=== PATIENT | male | born 1945 | race Caucasian/White ===

== ENCOUNTER 2020-03-11 09:47 | Inpatient (IN) | payer MEDICARE, SELFPAY ==
[2020-03-11] VITALS (15 sets, daily range): BP systolic 70–108; BP diastolic 36–80; PULSE 78–112; RESP 19–24; TEMP 36–37.1; O2SAT 92–99; BMI 24.7
--- NOTE | ~2020-03-11 | XR_ITS ---
EXAMINATION: XR chest 1V portable DATE: 03/11/2020 11:07 INDICATION: Cough and shortness of breath TECHNIQUE: frontal view of the chest was obtained. COMPARISON: Chest radiograph dated 07/28/2016 FINDINGS: Bronchial wall thickening which could represent either bronchitis or minimal pulmonary edema. No foca l airspace opacities, pleural effusion or pneumothorax. The cardiomediastinal silhouette is normal. A therosclerotic calcifications along the aorta and great vessels arising from the arch. Surgical clips at the bilateral neck which may be related to prior carotid endarterectomies. IMPRESSION: 1. Mild bronchial wall thickening which could be seen with bronchitis or minimal pulmonary edema. Reviewed, dictated and finalized at location A. IMPRESSION: 1. Mild bronchial wall thickening which could be seen with bronchitis or minima l pulmonary edema.
--- NOTE | ~2020-03-11 | XR_ITS ---
EXAMINATION: XR abdomen NG/feed tube rechec DATE: 03/14/2020 09:01 INDICATION: Nasogastric tube adjustment. TECHNIQUE: A supine view of the abdomen was obtained. COMPARISON: Abdomen single view at 8:48 AM FINDINGS: There are no dilated loops of bowel. Surgical clips overlie the abdomen. The nasogastric tu be tip is at the gastroesophageal junction. IMPRESSION: 1. Nasogastric tube tip at the gastroesophageal junction. Advancement 8 cm is recommended. Reviewed, dictated and finalized at location A. IMPRESSION: 1. Nasogastric tube tip at the gastroesophageal junction. Advancement 8 cm is r ecommended.
--- NOTE | ~2020-03-11 | XR_ITS ---
EXAMINATION: XR abdomen NG/feed tube rechec DATE: 03/14/2020 09:01 INDICATION: Nasogastric tube adjustment. TECHNIQUE: A supine view of the abdomen was obtained. COMPARISON: Abdomen single view at 8:50 AM. FINDINGS: There are no dilated loops of bowel. Surgical clips overlie the abdomen. The nasogastric tu be tip is at the gastroesophageal junction. IMPRESSION: 1. Nasogastric tube tip at the gastroesophageal junction. Advancement 8 cm is recommended. Reviewed, dictated and finalized at location A. IMPRESSION: 1. Nasogastric tube tip at the gastroesophageal junction. Advancement 8 cm is r ecommended.
--- NOTE | ~2020-03-11 | XR_ITS ---
EXAMINATION: XR chest 1V portable DATE: 03/14/2020 05:41 INDICATION: Pneumonia TECHNIQUE: frontal view of the chest was obtained. COMPARISON: Chest radiograph dated 03/13/2020 FINDINGS: Or hilar bronchial wall thickening. Subtle opacities in the right lower lung zone which could represe nt atelectasis or pneumonia. No pleural effusion or pneumothorax. The cardiomediastinal silhouette is normal. Atherosclerotic calcification along the aorta and great vessels arising from the arch. Posto perative changes with surgical clips at the bilateral neck and mandible. IMPRESSION: 1. Perihilar bronchial wall thickening and subtle opacities in the right lower lung zone which could represent atelectasis or pneumonia. Reviewed, dictated and finalized at location A.
--- NOTE | ~2020-03-11 | XR_ITS ---
EXAMINATION: XR chest 1V portable INDICATION: Severe sepsis TECHNIQUE: Portable AP chest at 0759 hours COMPARISON: 03/11/2020 FINDINGS: Minimal lower lung zone predominant bronchial wall thickening persists. There is no pleural effusion or pneumothorax. The heart size is normal. Calcified atherosclerosis is noted. Surgical cli ps are noted in the neck. IMPRESSION: 1. Unchanged mild bronchial wall thickening which may reflect bronchitis or pulmonary edema. Reviewed, dictated and finalized at location A. IMPRESSION: 1. Unchanged mild bronchial wall thickening which may reflect bronchitis or pul monary edema.
--- NOTE | ~2020-03-11 | XR_ITS ---
EXAMINATION: XR chest ET placement DATE: 03/14/2020 08:44 INDICATION: Intubation. TECHNIQUE: A single frontal view of the chest was obtained. COMPARISON: Chest single view 03/14/2020 at 5:18 AM FINDINGS: The left lateral costophrenic angle is excluded. A skin fold overlies left hemithorax. No p neumonia, pleural effusion, or pneumothorax. The heart size is normal. Calcified right hilar and medi astinal lymph nodes are consistent with old granulomatous disease. The endotracheal tube tip is 2.3 c m above the volodymyr. The nasogastric tube tip is at the gastroesophageal junction. IMPRESSION: 1. No acute cardiopulmonary disease. 2. Nasogastric tube tip at the gastroesophageal junction. Advancement 8 cm is recommended. Reviewed, dictated and finalized at location A. IMPRESSION: 1. No acute cardiopulmonary disease. 2. Nasogastric tube tip at the gastroesophageal junction. Advancement 8 cm is r ecommended.
--- NOTE | ~2020-03-11 | XR_ITS ---
EXAMINATION: XR abdomen NG/feed tube insert DATE: 03/14/2020 08:44 INDICATION: Nasogastric tube placement. TECHNIQUE: A supine view of the abdomen was obtained. COMPARISON: None. FINDINGS: There are no dilated loops of bowel. Surgical clips overlie the abdomen. The nasogastric tu be tip is at the gastroesophageal junction. IMPRESSION: 1. Nasogastric tube tip at the gastroesophageal junction. Advancement 8 cm is recommended. Reviewed, dictated and finalized at location A. IMPRESSION: 1. Nasogastric tube tip at the gastroesophageal junction. Advancement 8 cm is r ecommended.
--- NOTE | ~2020-03-11 | CT_ITS ---
EXAMINATION: CT brain wo con DATE: 03/11/2020 11:38 INDICATION: Altered mental status. Confusion. TECHNIQUE: Computed tomography (CT) of the head was performed without intravenous contrast. Sagittal and coronal reconstructions were performed. The mA was adjusted according to patient size. Iterative reconstruction technique was employed. The dose-length product was 605.33 mGy-cm. COMPARISON: None FINDINGS: Small region of encephalomalacia consistent with chronic infarct at the base of a sulcus at the anter ior left frontal lobe. Additional small old infarcts in the right jeanette and right cerebellar hemispher e. No acute intracranial hemorrhage, acute infarction or abnormal extra axial fluid collection. There is mild scattered white matter hypoattenuation consistent with chronic small vessel ischemic disease . Symmetric prominence of the sulci consistent with mild age-appropriate diffuse cerebral volume loss . Ventricles are normal and symmetric. No mass/mass effect. Bilateral otomastoid effusions. The orbit s and paranasal sinuses are normal. Intracranial calcified cerebral atherosclerosis is noted. IMPRESSION: 1. Small old infarcts in the left frontal lobe, right jeanette and right cerebellar hemisphere. No acute intracranial process. 2. Mild scattered white matter hypoattenuation consistent with chronic small vessel ischemic disease. 3. Bilateral otomastoid effusions. Correlate clinically for otomastoiditis. Reviewed, dictated and finalized at location A. IMPRESSION: 1. Small old infarcts in the left frontal lobe, right jeanette and right cerebellar hemisphere. No acute intracranial process. 2. Mild scattered white matter hypoattenuation consistent with chronic small ve ssel ischemic disease. 3. Bilateral otomastoid effusions. Correlate clinically for otomastoiditis.
--- NOTE | ~2020-03-11 | XR_ITS ---
EXAMINATION: XR chest 1V portable DATE: 03/13/2020 05:45 INDICATION: Pneumonia TECHNIQUE: frontal view of the chest was obtained. COMPARISON: Chest radiograph dated 03/12/2020 FINDINGS: No interval change in infrahilar predominant bronchial wall thickening with interstitial pattern. No focal airspace consolidation, pleural effusion or pneumothorax. The cardiomediastinal silhouette is n ormal. Atherosclerotic aorta. IMPRESSION: 1. Unchanged infrahilar bronchial wall thickening which could be seen with bronchitis or minimal pulm onary edema. Reviewed, dictated and finalized at location A. IMPRESSION: 1. Unchanged infrahilar bronchial wall thickening which could be seen with bron chitis or minimal pulmonary edema.
--- NOTE | 2020-03-11 09:58 | ECG_ITS ---
Measurements Intervals [place] Rate: 79 P: 28 MI: 142 QRS: 35 QRSD: 82 T: 55 QT: 377 QTc: 434 Interpretive Statements SINUS RHYTHM WITH SINUS ARRHYTHMIA NORMAL ECG Electronically Signed On 03-11-2020 10:17:37 CDT by Nba Stevenson D.O.
[2020-03-11 10:09] LABS: Basophils Absolute Auto 0.1 K/mm3 (0.0-0.1); Basophils Percent Auto 1.1 % (0.2-1.2); Eosinophils Absolute Auto 0.1 K/mm3 (0-0.3); Eosinophils Percent Auto 0.9 % (0-4.4); Hematocrit 47.4 % (42.0-52.0); Hemoglobin 15.2 g/dL (14.0-18.0); Immature Granulocyte Absolute 0.02 K/mm3 (0.00-0.031); Immature Granulocyte Percent A 0.2 % (0-0.5); Lymphocytes Absolute Auto 1.62 K/mm3 (0.9-3.2); Lymphocytes Percent Auto 13.8 % (18.3-44.2); Mean Corpuscular HGB Conc 32.1 g/dl (32-36); Mean Corpuscular Hemoglobin 29.9 pg (26-34); Mean Corpuscular Volume 93.1 fl (80-100); Mean Platelet Volume 9.5 fl (7.4-10.4); Monocytes Absolute Auto 0.9 K/mm3 (0.1-0.6); Monocytes Percent Auto 7.7 % (2.6-8.5); Neutrophils Percent Auto 76.3 % (45.5-73.1); Platelet Count Result 236 k/mm3 (150-375); Red Blood Count 5.09 M/mm3 (4.6-6.20); Red Cell Distribution Width 14.1 % (11.5-14.5); White Blood Count 11.8 K/mm3 (4.5-10.0)
[2020-03-11] MEDS: SODIUM CHLORIDE 0.9% IV 1,000 ML 999 ML IV CONT ×2 (10:13→11:20)
--- NOTE | 2020-03-11 10:15 | PC.NURSE ---
PT ADAMANT THAT HE DOES NOT WANT A CATHETER. A&OX3, PA AUGUST AWARE, PT ATTEMPTING TO GIVE CLEAN CATCH URINE SAMPLE AT THIS TIME.
--- NOTE | 2020-03-11 10:17 | PC.NURSE ---
1L NS FROM EMS CONTINUED UPON ARRIVAL FOR LOW BP.
[2020-03-11 10:21] LABS: Alanine Aminotransferase 11 U/L (4-50); Albumin Level 3.9 g/dL (3.5-5.1); Alkaline Phosphatase 92 U/L (38-126); Aspartate Amino Transferase 19 U/L (17-59); Bilirubin,Total 0.6 mg/dL (0.2-1.3); Blood Urea Nitrogen 18 mg/dL (9-20); Calcium 8.9 mg/dL (8.4-10.2); Carbon Dioxide 26 mmol/L (22-30); Chloride 104 mmol/L (98-107); Estimated CRCL calculation 68 ml/min; Estimated Glomerular Filt Rate > 60; Glucose 170 mg/dL (75-110); Potassium 4.2 mmol/L (3.4-5.0); Sodium 138 mmol/L (137-145)
[2020-03-11 10:38] LABS: Creatine Kinase 37 U/L (55-170); INR 1.1; Magnesium 2.1 mg/dL (1.6-2.3); Partial Thromboplastin Time 32.1 SECONDS (22.3-36.8); Prothrombin Time 13.8 Seconds (11.1-14.7)
[2020-03-11 10:41] LABS: CRP 0.8 mg/dL (<1.0)
[2020-03-11 10:48] LABS: Alveolar/Arterial O2 Gradient 70.2 mmHg; Base Excess ABG -3.2 mEq/l (+/-2.0); Carboxyhemoglobin 0.7 % THb (0-2.0); Fractional Inspired Oxygen 21 %; HCO3 ABG 21.2 mEq/l (22.0-26.0); Methemoglobin ABG 0.4 %THb (0-1.5); Oxygen Content ABG 13.3 %vol (16.0-22.0); Oxyhemoglobin 66.8 % THb (90.0-100.0); PCO2 ABG 36.1 mmHg (35.0-45.0); PO2 FiO2 Ratio Arterial Blood 1.73 %; Reduced Hemoglobin 32.1 %THb (0-5.0); Total Hemoglobin 14.2 g/dL (12.0-18.0); pH ABG 7.386 (7.350-7.450)
[2020-03-11 10:50] LABS: NT Pro B Type Natriuretic Pept 426 PG/ML (5-100); Troponin I < 0.012 ng/mL (0.000-0.034)
[2020-03-11 10:53] LABS: Lactic Acid Reflex 2.1 mmol/L (0.7-2.1)
[2020-03-11 10:54] LABS: PO2 ABG 36.3 mmHg (80.0-100.0)
[2020-03-11 10:55] LABS: Modified Allen's Test Pass; Oxygen Saturation ABG 69.1 % (95.0-100.0); Site Drawn LEFT RADIAL
[2020-03-11 11:05] LABS: Beta-Hydroxybutyrate/Acetoacetate 1.67 mmol/L (0.02-0.27)
--- NOTE | 2020-03-11 12:06 | PC.NURSE ---
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 AT BEDSIDE WITH ANNABELLE I ADDRESSED HIS CONCERNS TO WHICH HE COULDN'T FIND A REASON TO BE UPSET. DAUGHTER AT BEDSIDE ATTEMPTING TO CALM PT.
[2020-03-11 12:10] LABS: Add Urine Microscopic? YES; Appearance Urine Clear (Clear); Bilirubin Urine Negative (Negative); Blood Urine Negative (Negative); Color Urine Yellow (Yellow); Glucose Urine UA 2+ mg/dL (Negative); Ketones Urine 1+ mg/dL (Negative); Leukocyte Esterase Ur Negative LEU/UL (Negative); Mucus Urine Rare /lpf; Nitrate Urine Negative (Negative); Protein Urine Negative (Negative); RBC Urine 0-2 /hpf (0-2); Specific Grav Ur 1.023 (1.001-1.035); Urobilinogen Urine Negative mg/dL (<2.0); WBC Urine 0-3 /hpf
--- NOTE | 2020-03-11 12:33 | ED.AMS ---
HPI - Altered Mental Status General Chief Complaint: Altered Mental Status <SPENCER De Paz Last Filed: 03/11/20 14:13> Stated Complaint: Altered mental status <SPENCER De Paz Last Filed: 03/11/20 14:13> Time Seen by Provider: 03/11/20 10:07 <SPENCER De Paz Last Filed: 03/11/20 14:13> Source: patient and family <SPENCER De Paz Last Filed: 03/11/20 14:13> Mode of arrival: ambulatory <SPENCER De Paz Last Filed: 03/11/20 14:13> Limitations: clinical condition <SPENCER De Paz Last Filed: 03/11/20 14:13> History of Present Illness HPI narrative: Patient is a 74-year-old male who presents with family to emergency department for talking to his remote and doing some activities that have the family concerned that he is becoming more confused patient with questionable history of dementia. Patient has had a cough daughter had not seen her father since 2 weeks ago when she saw him he had complained of dizziness at that time. Patient on arrival to emergency department is denying any complaints and is alert and oriented x3. Patient denies any chest pain shortness of breath lightheadedness patient has had a cough that is productive. Phlegm his just got out of the hospital with pneumonia. Denying any exposure to COVID at this time. <Bryce Ricks PA-C - Last Filed: 03/11/20 14:13> Related Data Home Medications: Home Medications Medication Instructions Recorded Confirmed atorvastatin 20 mg PO DAILY 03/11/20 clonazepam 0.125 mg PO DAILY 03/11/20 insulin aspart U-100 [Novolog 1 sliding scale dose SUBCUT 03/11/20 U-100 Insulin aspart] USEASDIRECTD insulin glargine [Lantus U-100 unit SUBCUT DAILY 03/11/20 Insulin] <SPENCER De Paz Last Filed: 03/11/20 14:13> Allergies/Adverse Reactions: Allergies Allergy/AdvReac Type Severity Reaction Status Date / Time No Known Allergies Allergy Verified 03/11/20 10:00 <SPENCER De Paz Last Filed: 03/11/20 14:13> Review of Systems Review of Systems: All systems reviewed & are unremarkable except as noted in HPI and below <Bryce Ricks PA-C - Last Filed: 03/11/20 14:13> [facility] Past Medical History Medical History: Medical History Insulin dependent diabetes mellitus <Bryce Ricks PA-C - Last Filed: 03/11/20 14:13> Social History Social History: Social History (Updated 03/11/20 @ 12:35 by Bryce Ricks PA-C) Smoking status: Never smoker Gender identity (if verbalized by the patient): Male Sexual Orientation (if Verbalized by the Patient): Straight or Heterosexual <Bryce Ricks PA-C - Last Filed: 03/11/20 14:13> Exam Narrative: Exam Narrative: GENERAL: Ill-appearing, well-nourished, and in no acute distress. HEAD: Normocephalic, atraumatic. EYES: PERRLA and EOMI. ENT: Nares clear, no rhinorrhea or epistaxis. Mucous membranes moist. Oropharynx without tonsillar hypertrophy exudate or other lesions. NECK: Supple. No adenopathy or masses. CHEST: Clear to auscultation. No respiratory distress. Coarse breath sounds HEART: Regular rate and rhythm. No murmur heard. Normal peripheral pulses. ABDOMEN: Soft, nontender, nondistended EXTREMITIES: Normal range of motion. No edema. SKIN: Warm, dry, no rash. NEURO: No focal deficits. Alert and oriented x3. Cranial nerves II through XII grossly intact. PSYCH: Normal mood and affect. <Bryce Ricks PA-C - Last Filed: 03/11/20 14:13> Course Course Emergency Course: Patient in the room is been hydrated given IV antibiotics patient was given 3 L of fluid treated for pneumonia will be placed in hospital for further evaluation of his hallucinating behavior and whether or not it may be related to pneumonia. Patient is also had low blood pressures. Patient notes that his blood pressure normally runs
--- NOTE | 2020-03-11 13:10 | PC.NURSE ---
PT AUGUST AWARE OF BP, NO NEW ORDERS.
[2020-03-11 13:31] LABS: Reflex Lactic Acid Yes or No Add Lactic
--- NOTE | 2020-03-11 13:47 | PC.NURSE ---
PT DAUGHTER HAS INFORMED PA AND MYSELF AT THIS TIME THAT PT HAS AGREED TO STAY.
--- NOTE | 2020-03-11 14:22 | PC.NURSE ---
ERP ASAD AT BEDSIDE FOR CENTRAL LINE PLACEMENT, STERILE PRECAUTIONS IN PLACE, CONSENT SIGNED PRIOR TO START.
--- NOTE | 2020-03-11 14:46 | PC.NURSE ---
ERP STILL AT BEDSIDE PLACING CENTRAL LINE, FIRST ATTEMPT IN JUGULAR UNSUCCESSFUL, EDP ASAD NOW ATTEMPTING IN SUBCLAVIAN.
--- NOTE | 2020-03-11 15:00 | PC.NURSE ---
PT DID NOT TOLERATE PROCEDURE WELL, UNSUCCESSFUL ATTEMPT BY ERP ASAD, PT CLEANED UP AND BACK AT BEDSIDE. ERP ASAD TO CALL ICU ABOUT ACCEPTING PT WITHOUT CENTRAL LINE.
--- NOTE | 2020-03-11 15:58 | PC.NURSE ---
ATTEMPTED TO CALL REPORT, RN STATES THAT SHE NEEDS A FEW MINUTES. WILL CALL BACK IN 5.
[2020-03-11] MEDS: LACTATED RINGERS 1,000 ML 125 ML IV CONT (17:00)
--- NOTE | 2020-03-11 17:02 | ADMGEN ---
This patient, Saul Luna, was admitted to Intensive Care Unit-3. Patient/family oriented to hospital policies and general routines including ID bracelet, bed and alarms, visiting hours, pain management, procedures, bathroom and other care routines, personal items, smoking policy, room service/diet, and visiting hours. Valuables list has been completed. Information on how to activate the Rapid Response Team has been discussed. Patient/Family are encouraged to report perceived risks to care and to ask questions if they do not understand what they are told or what they should do.
[2020-03-11 19:17] LABS: SARS-CoV-2 RNA PCR Negative
[2020-03-11] MEDS: FAMOTIDINE 20 MG/2 ML VIAL IV PUSH (20:17)
--- NOTE | 2020-03-11 20:44 | PM.IMHP ---
H&P: HPI History of Present Illness Chief complaint: Hypotension/pneumonia Narrative: Saul Luna is a 74 year old male who has a history of diabetes and tobacco abuse. To the emergency room because he was not acting quite himself today. The patient was doing some activities that concerned the family. Patient was confused. The patient had a cough and he complained of some dizziness. No fever chills. Had no exposure to covid 19 at that time. The patient is very hard of hearing and also had a history of having throat cancer in the past. The patient's blood pressures dropped and ED provider attempted to start a central line on the patient without success. ED physician spoke to the filler blender who agreed to accept the patient into the ICU. He had a low-grade fever of 98.7. The patient was swabbed for covid 19 blood sugar was found to be 140. Lactic was 2.1 is now 1.0. Chest x-ray was read as mild bronchial wall thickening which could be seen with bronchitis or minimally pulmonary edema CT small old infarcts in the left frontal lobe right jeanette and right cerebellum her hemisphere no acute intracranial process mild scattered white matter hypoattenuation consistent with chronic small-vessel ischemic disease bilateral osteo mastoid effusion. 3 L of fluid in the emergency room and started on azithromycin and Rocephin Date of service 03/11/2020 Review of Systems Review of Systems: All systems reviewed & are unremarkable except as noted in HPI and below Constitutional: Constitutional: Reports as per HPI and Reports no additional constitutional complaints Eyes: Eyes: Reports as per HPI and Reports no additional eye complaints ENT: Reports system reviewed and no additional complaints, except as documented and Reports Normal hearing present Cardiovascular: Cardiovascular: Reports no additional cardiovascular complaints Respiratory: Respiratory: Reports no additional respiratory complaints and Reports no additional respiratory complaints Gastrointestinal: Gastrointestinal: Reports as per HPI and Reports no additional gastrointestinal complaints Musculoskeletal: Musculoskeletal: Reports no additional musculoskeletal complaints Integumentary/Breasts: Skin/Breast: Reports system reviewed and no additional complaints, except as docu and Reports as per HPI Neurologic: Reports system reviewed and no additional complaints, except as documented, Reports as per HPI and Reports Normal hearing present Psychiatric: Psychiatric: Reports no additional psychiatric complaints and Reports as per HPI Endocrine: Endocrine: Reports no additional endocrine complaints Hematologic/Lymphatic: Hematologic/Lymphatic: Reports no additional hematologic/lymphatic complaints Allergic/Immunologic: Allergic/Immunologic: Reports no additional allergic/immunologic complaints PMFSH Past Medical History Medical History (Updated 03/11/20 @ 21:11 by Grace Qiu NP) DM2 (diabetes mellitus, type 2) Insulin-dependent History of stroke Hyperlipidemia Insulin dependent diabetes mellitus Throat cancer Treated with radiation Surgical History Surgical History (Updated 03/11/20 @ 20:57 by Grace Qiu NP) H/O hernia repair Which it dehisced Family History Family History (Updated 03/11/20 @ 21:02 by Grace Qiu NP) Mother Dementia Father Killed and world war 2 Social History Social History (Updated 03/11/20 @ 21:07 by Grace Qiu NP) Social History: 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 Patient had 3 children but 1 child had gotten killed. He desires to be a full code. 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 Denies any alcohol or illicit drugs. He stated he smoked pot 1 time in his life. Smoking packs per day: 1 Smoking cigarettes per day: 20.0 Years smoked: 60 Smoking pack-years: 60.00 Smoking status: [place]
[2020-03-11 20:45] LABS: Glucose Point of Care 140 (65-105)
[2020-03-12] VITALS (22 sets, daily range): BP systolic 47–163; BP diastolic 35–135; PULSE 47–92; RESP 16–24; TEMP 36.2–36.6; O2SAT 92–100
--- NOTE | 2020-03-12 | ECHO_ITS ---
Patient Info Name: Saul Luna Age: 74 years : 1945 Gender: Male Ht: 72 in Wt: 164 lbs BSA: 1.94 m2 HR: 90 bpm BP: 80 / 57 mmHg Heart Rhythm: Sinus Rhythm Technical Quality: Poor Exam Date: 03/12/2020 9:31 AM Exam Location: [facility] Pul[facility] Patient Status: Inpatient Admit Date: 03/11/2020 Staff Ordering Physician: hKang Main MD Aircraft Systems Technician: Geo Escoto RDCS Attending Provider: Jarred Szymanski MD Referring Physician: Jose David WHITE; Exam Type: CA echo dop color flow w con Study Info Indications R65.20 - Severe sepsis without septic shock Complete two-dimensional, color flow and Doppler transthoracic echocardiogram is performed with contrast to opacify the left ventricle and to improve the deliniation of the left ventricle endocardial borders. Contrast/Agitated Saline Contrast/Ag. Saline: Definity Amount: 2.00 ml Administered By: Jam Aly RN Existing IV Access: Yes Reason for Poor Study: poor echocardiographic windows History/Risk Factors Severe sepsis; DM2, HoTN. Summary 1. Technically difficult study with limited views despite definity contrast administration. 2. Regional wall motion assessment was not possible given poor visualization of the left ventricle. Probably preserved LV systolic function 50-60%. 3. Left ventricular chamber dimension is not well visualized. 4. The left ventricular diastolic function is grade I diastolic dysfunction. Recommendations * Consider transesophageal echocardiogram if clinically indicated. Left Ventricle Left ventricular chamber dimension is not well visualized. The left ventricular diastolic function is grade I diastolic dysfunction. Technically difficult study with limited views despite definity contrast administration. Regional wall motion assessment was not possible given poor visualization of the left ventricle. Probably preserved LV systolic function 50-60%. Right Ventricle Right ventricular chamber dimension is not well visualized. Left Atria Left atrial chamber dimension is not well visualized. Right Atria Right atrial chamber dimension is not well visualized. Aortic Valve The aortic valve is not well visualized. There is no aortic valve stenosis. Pulmonic Valve The pulmonic valve is not well visualized. Mitral Valve The mitral valve has not well visualized. Tricuspid Valve The tricuspid valve leaflets are not well visualized. Pericardium/Pleural The pericardium appears not well visualized. Aorta The aortic root size at the sinus of Valsalva is not well visualized. Left Ventricular Outflow Tract Name Value Normal LVOT Doppler LVOT Peak Gradient 2 mmHg LVOT Mean Gradient 1 mmHg LVOT VTI 12.51 cm LVOT VTI/AV VTI Ratio 0.58 Mitral Valve Name Value Normal MV Doppler MV Decel S
[2020-03-12] MEDS: LACTATED RINGERS 1,000 ML 125 ML IV CONT ×3 (00:45→17:27)
[2020-03-12 04:19] LABS: Basophils Absolute Auto 0.2 K/mm3 (0.0-0.1); Basophils Percent Auto 1.7 % (0.2-1.2); Eosinophils Absolute Auto 0.2 K/mm3 (0-0.3); Eosinophils Percent Auto 2.2 % (0-4.4); Hematocrit 45.3 % (42.0-52.0); Hemoglobin 14.7 g/dL (14.0-18.0); Immature Granulocyte Absolute 0.04 K/mm3 (0.00-0.031); Immature Granulocyte Percent A 0.4 % (0-0.5); Lymphocytes Absolute Auto 2.32 K/mm3 (0.9-3.2); Lymphocytes Percent Auto 21.7 % (18.3-44.2); Mean Corpuscular HGB Conc 32.5 g/dl (32-36); Mean Corpuscular Hemoglobin 29.8 pg (26-34); Mean Corpuscular Volume 91.9 fl (80-100); Mean Platelet Volume 9.7 fl (7.4-10.4); Monocytes Absolute Auto 0.9 K/mm3 (0.1-0.6); Monocytes Percent Auto 8.6 % (2.6-8.5); Neutrophils Percent Auto 65.4 % (45.5-73.1); Platelet Count Result 218 k/mm3 (150-375); Red Blood Count 4.93 M/mm3 (4.6-6.20); White Blood Count 10.7 K/mm3 (4.5-10.0)
[2020-03-12 04:39] LABS: Alanine Aminotransferase 11 U/L (4-50); Albumin Level 3.8 g/dL (3.5-5.1); Alkaline Phosphatase 85 U/L (38-126); Aspartate Amino Transferase 23 U/L (17-59); Bilirubin,Total 0.7 mg/dL (0.2-1.3); Blood Urea Nitrogen 11 mg/dL (9-20); Calcium 8.6 mg/dL (8.4-10.2); Carbon Dioxide 26 mmol/L (22-30); Chloride 105 mmol/L (98-107); Estimated CRCL calculation 102 ml/min; Estimated Glomerular Filt Rate > 60; Glucose 121 mg/dL (75-110); Potassium 3.8 mmol/L (3.4-5.0); Sodium 136 mmol/L (137-145)
[2020-03-12] MEDS: INSULIN GLARGINE (*BKC) 100 UNITS/ML 12 UNITS SUB-Q (08:42)
[2020-03-12] MEDS: FAMOTIDINE 20 MG/2 ML VIAL IV PUSH ×2 (08:43→20:06)
[2020-03-12] MEDS: ATORVASTATIN 20 MG TABLET PO (08:43)
[2020-03-12] MEDS: CLOPIDOGREL BISULFATE 75 MG TABLET PO (08:43)
[2020-03-12] MEDS: ASPIRIN 81 MG ENTERIC TABLET PO (08:44)
--- NOTE | 2020-03-12 10:16 | PCOTNOTE ---
OT evaluation initiated, however, patient BP running low (61/42). Hold OT evaluation per division human resources manager and RN until later today. Will attempt OT evaluation when medically appropriate.
--- NOTE | 2020-03-12 10:17 | PCPTNOTE ---
Initiated PT evaluation this date. Pt BP dropped to 61/42 while in patient room and instructed to hold evaluation until this afternoon. Will try again when medically appropriate.
[2020-03-12] MEDS: hetaSTARCH 6%/NACL 500 ML 250 ML IV CONT (10:40)
[2020-03-12] MEDS: ENOXAPARIN 40 MG/0.4 ML SYRINGE SUB-Q (11:36)
[2020-03-12 12:07] LABS: Glucose Point of Care 159 (65-105)
--- NOTE | 2020-03-12 12:51 | WPDCNINT ---
Assessment and Plan Assessment and plan (1) Hypotension: Qualifiers: Hypotension type: unspecified hypotension type Qualified Code(s): I95.9 - Hypotension, unspecified Code(s): I95.9 - Hypotension, unspecified Status: Acute Assessment and Plan: Patient presented with hypotension and the ED with systolic in the 60s to 80s, was given adequate amount of IV fluids. Central line was attempted in the right IJ and right subclavian but unable to advance the guidewire. Patient refused femoral central line -03/12/2020 blood pressures dropped to 50s and 60s systolic and was started on Gaurang-Synephrine via peripheral access -discussed with Dr. Garcia, who is his primary care doctor, he stated that the blood pressures for the patient ran normally low in the 70s to 80s and that is where he would maintain him -I also started midodrine -will continue to monitor (2) DM2 (diabetes mellitus, type 2): Qualifiers: Diabetes mellitus fdc insulin use: with fdc use Diabetes mellitus complication status: with other specified complication Qualified Code(s): E11.69 - Type 2 diabetes mellitus with other specified complication; Z79.4 - half-way (current) use of insulin Code(s): E11.9 - Type 2 diabetes mellitus without complications Status: Chronic Assessment and Plan: Continue Accu-Cheks and sliding scale insulin -continue home dose Lantus -blood sugars in acceptable range (3) Suspected COVID-19 virus infection: Code(s): Z20.828 - Contact with and (suspected) exposure to other viral communicable diseases Status: Acute Assessment and Plan: SARS-CoV-2 PCR negative -airborne, droplet and contact precautions were discontinued -patient on room air (4) History of stroke: Code(s): Z86.73 - Personal history of transient ischemic attack (TIA), and cerebral infarction without residual deficits Status: Chronic Assessment and Plan: History of stroke -CT scan on admission showed small old infarcts in the left frontal, right bones and right cerebellar hemisphere. No acute intracranial process. Mild scattered white matter hypoattenuation consistent with chronic small vessel ischemic disease. Bilateral Otomastoid effusion, correlate clinically for Otomastoiditis. (5) Hyperlipidemia: Qualifiers: Hyperlipidemia type: unspecified Qualified Code(s): E78.5 - Hyperlipidemia, unspecified Code(s): E78.5 - Hyperlipidemia, unspecified Status: Chronic Assessment and Plan: Continue atorvastatin (6) Pneumonia: Qualifiers: Laterality: left Lung location: lower lobe of lung Pneumonia type: due to unspecified organism Qualified Code(s): J18.9 - Pneumonia, unspecified organism Code(s): J18.9 - Pneumonia, unspecified organism Status: Acute Assessment and Plan: Questionable bronchitis, pneumonia -continue azithromycin and ceftriaxone -sputum culture growing moderate gram-positive cocci in cluster, moderate g positive bacilli -will add vancomycin (7) CHF (congestive heart failure): Qualifiers: Heart failure chronicity: unspecified Heart failure type: unspecified Qualified Code(s): I50.9 - Heart failure, unspecified Code(s): I50.9 - Heart failure, unspecified Status: Acute Assessment and Plan: Echocardiogram has been done and awaiting results (8) DVT prophylaxis: Code(s): Z29.9 - Encounter for prophylactic measures, unspecified Status: Acute Assessment and Plan: Continue Lovenox Additional Plan Discussed with daughter at bedside and updated with patient's condition and plan of care Discussed with (patient's primary care doctor). Code status: Full code Critical care time spent: 43 minutes Due to a high probability of clinically significant, life threatening deterioration, the patient required my highest level of preparedness to interve
[2020-03-12] MEDS: MIDODRINE HCL 10 MG TABLET PO ×2 (13:29→17:28)
--- NOTE | 2020-03-12 13:30 | PCPTNOTE ---
Attempted PT evaluation this PM. Hold per RN secondary to patient blood pressure. Will attempt PT evaluation again when medically appropriate.
--- NOTE | 2020-03-12 13:30 | PCOTNOTE ---
Per RN, hold OT evaluation this date secondary to patient low blood pressure. Will attempt OT evaluation at later time when medically appropriate.
--- NOTE | 2020-03-12 15:18 | PM.IMPN ---
Progress Note: A&P Assessment and Plan (1) Pneumonia: Qualifiers: Laterality: left Lung location: lower lobe of lung Pneumonia type: due to unspecified organism Qualified Code(s): J18.9 - Pneumonia, unspecified organism Code(s): J18.9 - Pneumonia, unspecified organism Status: Acute Assessment and Plan: Chest x-ray is not well-defined for pneumonia but looks more like bronchitis. The patient was started on azithromycin and Rocephin. Will get blood cultures and sputum cultures. The patient is being checked for COVID. Patient became hypotensive and had to have several L of IV fluids during the blood pressure up. A central line was attempted x2 without success. I talked to him about a central line again and he is refusing. 03/12/20 15:18 patient is 74-year-old male with a history of throat cancer with dementia he was brought to the emergency department by his family patient was quite confused is behaving strangely there was concern about cough and congestion, patient is hard of hearing and unable to provide much detail history review of symptom in the emergency department was found to have hypotension systolic blood pressure and 70s and 80s, attempts were made to place central line with IJ without success and patient refused femoral line. Patient is vigorously hydrated, correct in ICU, still quite confused, patient has had no contact with COVID is COVID test is negative, his x-ray shows possibly pneumonia being treated with Rocephin azithromycin, unlikely sepsis patient has a mildl leukocytosis, no fever no tachycardia or tachypnea, no lactic acid. (2) DM2 (diabetes mellitus, type 2): Qualifiers: Diabetes mellitus rn gynecology insulin use: with snf use Diabetes mellitus complication status: with other specified complication Qualified Code(s): E11.69 - Type 2 diabetes mellitus with other specified complication; Z79.4 - retirement (current) use of insulin Code(s): E11.9 - Type 2 diabetes mellitus without complications Status: Chronic Assessment and Plan: Accu-Cheks AC and HS. (3) Hyperlipidemia: Qualifiers: Hyperlipidemia type: unspecified Qualified Code(s): E78.5 - Hyperlipidemia, unspecified Code(s): E78.5 - Hyperlipidemia, unspecified Status: Chronic Assessment and Plan: Continue with atrial for statin. (4) Suspected COVID-19 virus infection: Code(s): Z20.828 - Contact with and (suspected) exposure to other viral communicable diseases Status: Acute Assessment and Plan: Continue with isolation. Await results. It is negative (5) History of stroke: Code(s): Z86.73 - Personal history of transient ischemic attack (TIA), and cerebral infarction without residual deficits Status: Chronic Assessment and Plan: Patient is on Plavix and aspirin. (6) Dementia: Qualifiers: Dementia behavioral disturbance: with behavioral disturbance Dementia type: vascular dementia Qualified Code(s): F01.51 - Vascular dementia with behavioral disturbance Code(s): F03.90 - Unspecified dementia without behavioral disturbance Status: Acute Assessment and Plan: Patient is aware of who he is and where he is but not always the time. Subjective Date/time seen: 03/12/20 15:18 patient is 74-year-old male with a history of throat cancer with dementia he was brought to the emergency department by his family patient was quite confused is behaving strangely there was concern about cough and congestion, patient is hard of hearing and unable to provide much detail history review of symptom in the emergency department was found to have hypotension systolic blood pressure and 70s and 80s, attempts were made to place central line with IJ without success and patient refused femoral line. Patient is vigorously hydrated, correct in ICU, still quite confused, patient has had no contact with COVID is COVID test is negat
[2020-03-12 17:23] LABS: Glucose Point of Care 139 (65-105)
[2020-03-12 21:21] LABS: Glucose Point of Care 152 (65-105)
[2020-03-13] VITALS (17 sets, daily range): BP systolic 52–169; BP diastolic 34–144; PULSE 49–96; RESP 16–25; TEMP 36.4–36.9; O2SAT 90–97
[2020-03-13] MEDS: LACTATED RINGERS 1,000 ML 125 ML IV CONT ×2 (01:13→09:08)
[2020-03-13 04:58] LABS: Hematocrit 45.9 % (42.0-52.0); Hemoglobin 15.2 g/dL (14.0-18.0); Mean Corpuscular HGB Conc 33.1 g/dl (32-36); Mean Corpuscular Hemoglobin 30.2 pg (26-34); Mean Corpuscular Volume 91.1 fl (80-100); Mean Platelet Volume 9.7 fl (7.4-10.4); Platelet Count Result 223 k/mm3 (150-375); Red Blood Count 5.04 M/mm3 (4.6-6.20); Red Cell Distribution Width 13.8 % (11.5-14.5); White Blood Count 10.9 K/mm3 (4.5-10.0)
[2020-03-13 05:13] LABS: Blood Urea Nitrogen 9 mg/dL (9-20); Calcium 8.4 mg/dL (8.4-10.2); Carbon Dioxide 28 mmol/L (22-30); Chloride 104 mmol/L (98-107); Estimated CRCL calculation 85 ml/min; Estimated Glomerular Filt Rate > 60; Glucose 137 mg/dL (75-110); Magnesium 1.9 mg/dL (1.6-2.3); Phosphorus 2.5 mg/dL (2.5-4.5); Potassium 3.8 mmol/L (3.4-5.0); Sodium 137 mmol/L (137-145)
--- NOTE | 2020-03-13 08:38 | WPDINTPN ---
Progress Note: A&P Assessment and Plan (1) Hypotension: Qualifiers: Hypotension type: unspecified hypotension type Qualified Code(s): I95.9 - Hypotension, unspecified Code(s): I95.9 - Hypotension, unspecified Status: Acute Assessment and Plan: Patient presented with hypotension and the ED with systolic in the 60s to 80s, was given adequate amount of IV fluids. Central line was attempted in the right IJ and right subclavian but unable to advance the guidewire. Patient refused femoral central line -03/12/2020 blood pressures dropped to 50s and 60s systolic and was started on Gaurang-Synephrine via peripheral access -discussed with Dr. Garcia, who is his primary care doctor, he stated that patient's systolic blood pressures hands normally low in the 70s to 80s and that is where he would maintain him -I also started midodrine -will continue to monitor (2) DM2 (diabetes mellitus, type 2): Qualifiers: Diabetes mellitus fdc insulin use: with fdc use Diabetes mellitus complication status: with other specified complication Qualified Code(s): E11.69 - Type 2 diabetes mellitus with other specified complication; Z79.4 - half-way (current) use of insulin Code(s): E11.9 - Type 2 diabetes mellitus without complications Status: Chronic Assessment and Plan: Continue Accu-Cheks and sliding scale insulin -continue home dose Lantus -blood sugars in acceptable range (3) Suspected COVID-19 virus infection: Code(s): Z20.828 - Contact with and (suspected) exposure to other viral communicable diseases Status: Acute Assessment and Plan: SARS-CoV-2 PCR negative -airborne, droplet and contact precautions were discontinued -patient on room air (4) History of stroke: Code(s): Z86.73 - Personal history of transient ischemic attack (TIA), and cerebral infarction without residual deficits Status: Chronic Assessment and Plan: History of stroke -CT scan on admission showed small old infarcts in the left frontal, right bones and right cerebellar hemisphere. No acute intracranial process. Mild scattered white matter hypoattenuation consistent with chronic small vessel ischemic disease. Bilateral Otomastoid effusion, correlate clinically for Otomastoiditis. (5) Hyperlipidemia: Qualifiers: Hyperlipidemia type: unspecified Qualified Code(s): E78.5 - Hyperlipidemia, unspecified Code(s): E78.5 - Hyperlipidemia, unspecified Status: Chronic Assessment and Plan: Continue atorvastatin (6) Pneumonia: Qualifiers: Laterality: left Lung location: lower lobe of lung Pneumonia type: due to unspecified organism Qualified Code(s): J18.9 - Pneumonia, unspecified organism Code(s): J18.9 - Pneumonia, unspecified organism Status: Acute Assessment and Plan: Questionable bronchitis, pneumonia -continue azithromycin and ceftriaxone and vancomycin -sputum culture growing moderate gram-positive cocci in cluster, moderate Gram-positive bacilli (7) CHF (congestive heart failure): Qualifiers: Heart failure chronicity: unspecified Heart failure type: unspecified Qualified Code(s): I50.9 - Heart failure, unspecified Code(s): I50.9 - Heart failure, unspecified Status: Acute Assessment and Plan: Echocardiogram on 03/12/2020: EF 50-60%, grade 1 diastolic dysfunction -will decrease maintenance IV fluids (8) DVT prophylaxis: Code(s): Z29.9 - Encounter for prophylactic measures, unspecified Status: Acute Assessment and Plan: Continue Lovenox Additional Plan Discussed with daughter at bedside and updated her patient's condition and plan of care Code status: Full code Critical care time spent: 32 minutes Due to a high probability of clinically significant, life threatening deterioration, the patient required my highest level of preparedness to intervene em
[2020-03-13] MEDS: ENOXAPARIN 40 MG/0.4 ML SYRINGE SUB-Q (09:10)
[2020-03-13] MEDS: MIDODRINE HCL 10 MG TABLET PO (09:10)
[2020-03-13] MEDS: INSULIN GLARGINE (*BKC) 100 UNITS/ML 12 UNITS SUB-Q (09:10)
[2020-03-13] MEDS: CLOPIDOGREL BISULFATE 75 MG TABLET PO (09:10)
[2020-03-13] MEDS: ATORVASTATIN 20 MG TABLET PO (09:10)
[2020-03-13] MEDS: ASPIRIN 81 MG ENTERIC TABLET PO (09:11)
[2020-03-13] MEDS: FAMOTIDINE 20 MG/2 ML VIAL IV PUSH ×2 (09:38→20:50)
--- NOTE | 2020-03-13 10:18 | PCPTNOTE ---
Hold PT evaluation today per nursing secondary to pt blood pressure. Will try again when medically appropriate.
--- NOTE | 2020-03-13 10:18 | PCOTNOTE ---
OT evaluation attempted this date. Per RN, Hold patient due to low blood pressure. Will attempt OT evaluation when medically appropriate.
[2020-03-13 11:57] LABS: Glucose Point of Care 161 (65-105)
--- NOTE | 2020-03-13 17:03 | PM.IMPN ---
Progress Note: A&P Assessment and Plan (1) Pneumonia: Qualifiers: Laterality: left Lung location: lower lobe of lung Pneumonia type: due to unspecified organism Qualified Code(s): J18.9 - Pneumonia, unspecified organism Code(s): J18.9 - Pneumonia, unspecified organism Status: Acute Assessment and Plan: 03/13/20 17:03 Chest x-ray is not well-defined for pneumonia but looks more like bronchitis. The patient was started on azithromycin and Rocephin. Will get blood cultures and sputum cultures. The patient is being checked for COVID. Patient became hypotensive and had to have several L of IV fluids during the blood pressure up. A central line was attempted x2 without success. I talked to him about a central line again and he is refusing. patient is 74-year-old male with a history of throat cancer with dementia he was brought to the emergency department by his family patient was quite confused is behaving strangely there was concern about cough and congestion, patient is hard of hearing and unable to provide much detail history review of symptom in the emergency department was found to have hypotension systolic blood pressure and 70s and 80s, attempts were made to place central line with IJ without success and patient refused femoral line. Patient is vigorously hydrated, correct in ICU, still quite confused, patient has had no contact with COVID is COVID test is negative, his x-ray shows possibly pneumonia being treated with Rocephin azithromycin, unlikely sepsis patient has a mildl leukocytosis, no fever no tachycardia or tachypnea, no lactic acid. Intesivist spoke with patient's primary care and patient has history of low BP in 60s and 70s systolic, patient treated with Gaurang-Synephrine and middorin, today patient clinically more alert and cooperative, he was to go home. (2) DM2 (diabetes mellitus, type 2): Qualifiers: Diabetes mellitus complication status: with other specified complication Diabetes mellitus fpc insulin use: with fpc use Qualified Code(s): E11.69 - Type 2 diabetes mellitus with other specified complication; Z79.4 - shelter (current) use of insulin Code(s): E11.9 - Type 2 diabetes mellitus without complications Status: Chronic Assessment and Plan: Accu-Cheks AC and HS. (3) Hyperlipidemia: Qualifiers: Hyperlipidemia type: unspecified Qualified Code(s): E78.5 - Hyperlipidemia, unspecified Code(s): E78.5 - Hyperlipidemia, unspecified Status: Chronic Assessment and Plan: Continue with atrial for statin. (4) Suspected COVID-19 virus infection: Code(s): Z20.828 - Contact with and (suspected) exposure to other viral communicable diseases Status: Acute Assessment and Plan: Continue with isolation. Await results. It is negative (5) History of stroke: Code(s): Z86.73 - Personal history of transient ischemic attack (TIA), and cerebral infarction without residual deficits Status: Chronic Assessment and Plan: Patient is on Plavix and aspirin. (6) Dementia: Qualifiers: Dementia behavioral disturbance: with behavioral disturbance Dementia type: vascular dementia Qualified Code(s): F01.51 - Vascular dementia with behavioral disturbance Code(s): F03.90 - Unspecified dementia without behavioral disturbance Status: Acute Assessment and Plan: Patient is aware of who he is and where he is but not always the time. Subjective Date/time seen: 03/13/20 17:03 Chest x-ray is not well-defined for pneumonia but looks more like bronchitis. The patient was started on azithromycin and Rocephin. Will get blood cultures and sputum cultures. The patient is being checked for COVID. Patient became hypotensive and had to have several L of IV fluids during the blood pressure up. A central line was attempted x2 without success. I talked to him about a central line again an
[2020-03-13 23:24] LABS: Glucose Point of Care 198 (65-105)
[2020-03-13] MEDS: LACTATED RINGERS 1,000 ML 75 ML IV CONT (23:50)
[2020-03-14] VITALS (21 sets, daily range): BP systolic 35–124; BP diastolic 17–107; PULSE 46–74; RESP 9–28; TEMP 34.9–36.9; O2SAT 84–100; BMI 21.9
[2020-03-14 01:32] LABS: Vancomycin Trough 10.9 ug/mL (10.0-20.0)
[2020-03-14 04:41] LABS: Hematocrit 50.7 % (42.0-52.0); Hemoglobin 16.6 g/dL (14.0-18.0); Mean Corpuscular HGB Conc 32.7 g/dl (32-36); Mean Corpuscular Hemoglobin 29.7 pg (26-34); Mean Corpuscular Volume 90.7 fl (80-100); Mean Platelet Volume 9.7 fl (7.4-10.4); Platelet Count Result 216 k/mm3 (150-375); Red Blood Count 5.59 M/mm3 (4.6-6.20); Red Cell Distribution Width 13.7 % (11.5-14.5); White Blood Count 13.9 K/mm3 (4.5-10.0)
[2020-03-14 04:56] LABS: Blood Urea Nitrogen 8 mg/dL (9-20); Calcium 8.6 mg/dL (8.4-10.2); Carbon Dioxide 24 mmol/L (22-30); Chloride 105 mmol/L (98-107); Estimated CRCL calculation 88 ml/min; Estimated Glomerular Filt Rate > 60; Glucose 187 mg/dL (75-110); Phosphorus 2.6 mg/dL (2.5-4.5); Potassium 3.1 mmol/L (3.4-5.0); Sodium 137 mmol/L (137-145)
[2020-03-14] MEDS: SODIUM CHLORIDE 0.9% IV 1,000 ML 999 ML (08:25)
--- NOTE | 2020-03-14 09:49 | WPDPROCEDUR ---
Procedures Intubation Intubation Date: 03/14/20 A pre-procedural Time-Out was completed immediately before starting the procedure and confirmed: Patient Identification, Site, Procedure, Patient Position and the Availability of Requisite Equipment: Yes Sedative: etomidate Paralytic: rocuronium Laryngoscope: fiber optic video scope ET tube size: 8 Tube secured depth (cm): 25 Tube placement confirmation: visualized tube passing through cords, equal breath sounds bilaterally, no breath sounds over epigastrium and confirmation by capnometry Patient tolerated procedure: well and no complications Intubation complications: none Additional comments: After obtaining consent from the and explaining the rationale for intubation. it was decided to go ahead and intubate the patient. The patient was lying in the supine position. Preoxygenation via BVM was provided for a minimum of 3 minutes. The patient had continuous cardiac as well as pulse oximetry monitoring during the procedure. Rapid sequence induction was provided by administration of Etomidate and Rocuronium. A Glidescope blade 4 was used to directly visualize the vocal cords. A 8 mm endotracheal tube was visualized advancing between the cords to a level of 25 cm at the lip. The stylette was then removed. Tube placement was also noted by fogging in the tube, equal and bilateral breath sounds, no sounds over the epigastrium, and end-tidal colorimetric monitoring. The cuff was then inflated with 10 ml of air and the tube secured using a commercially available device. A good pulse oximetry wave form was seen on the monitor throughout the procedure. The patient was then connected to the ventilator at a tidal volume of 450 ml; rate of 18; FiO2 of 100%; and PEEP of 5. A portable chest x-ray has been ordered for placement. Continued sedation will be provided by Fentanyl and Versed continuous infusion titrated to a RASS of -2. The patient tolerated the procedure well.
--- NOTE | 2020-03-14 09:50 | WPDPROCEDUR ---
Procedures Central Line Placement Left Femoral: Central Line Date: 03/14/20 Discussed w/ the patient/family/POA,the placement of a central venous catheter, including its clinical necessity/indication & associated potential risks, benifits and alternatives.: Yes The patient/family/POA understand(s) and acknowledge(s) the need to proceed with central venous catheter insertion as an important element of the patient's clinical management.: Yes Time Out Performed: Yes Patient Position: supine Patient placed on monitor/pulse ox: Yes Provider Prep: mask, sterile gown, Max. sterile barrier precautions, cap and hand hygiene Central line prep: Chlorhexidine scrub and sterile full body sheet applied Local anesthesia used: lidocaine 1% Amount of anesthesia used (ml): 3 Sterile Ultrasound Technique used for placement: Yes Central line lumen inserted: triple Armenian: 16 Length (cm): 16 Depth of Insertion (cm): 16 Post procedure: sutured in place, good blood return, all ports aspirated, flushed, capped, tegaderm, hemostatic disc, antimicrobial disc and aseptic technique maintained throughout procedure Post procedure x-ray: other (not applicable) Patient tolerated procedure: well Complications: none
--- NOTE | 2020-03-14 09:51 | WPDINTPN ---
Progress Note: A&P Assessment and Plan (1) Acute respiratory failure: Qualifiers: Respiratory failure complication: hypoxia and hypercapnia Qualified Code(s): J96.01 - Acute respiratory failure with hypoxia; J96.02 - Acute respiratory failure with hypercapnia Code(s): J96.00 - Acute respiratory failure, unspecified whether with hypoxia or hypercapnia Status: Acute Assessment and Plan: Patient had a cardiac arrest, unable to protect his airway. The bedside RN discussed with the over the phone and she agreed for intubation. -patient was intubated on 03/14/2020 -intubation was uneventful -chest x-ray did not show any acute cardiopulmonary disease -patient sedated with fentanyl Versed infusion -patient's daughters arrived and stated that the patient did not want to be on breathing machines and have discussed with patient's and have come to a decision to withdraw care (2) Cardiac arrest: Code(s): I46.9 - Cardiac arrest, cause unspecified Status: Acute Assessment and Plan: Unknown cause of cardiac arrest could be aspiration, acute coronary event -patient did lose his pulse, ROSC after 3-4 chest compressions, did not require any medications as it the cardiac arrest was very brief -family withdrawing support (3) Hypotension: Qualifiers: Hypotension type: unspecified hypotension type Qualified Code(s): I95.9 - Hypotension, unspecified Code(s): I95.9 - Hypotension, unspecified Status: Acute Assessment and Plan: Patient presented with hypotension and the ED with systolic in the 60s to 80s, was given adequate amount of IV fluids. Central line was attempted in the right IJ and right subclavian but unable to advance the guidewire. Patient refused femoral central line -03/12/2020 blood pressures dropped to 50s and 60s systolic and was started on Gaurang-Synephrine via peripheral access -discussed with Dr. Garcia, who is his primary care doctor, he stated that patient's systolic blood pressures hands normally low in the 70s to 80s and that is where he would maintain him - on midodrine -will continue to monitor -central line in the left femoral vein was inserted, flow was very sluggish, IV fluid bolus was given. Patient was started on Levophed (4) DM2 (diabetes mellitus, type 2): Qualifiers: Diabetes mellitus intermediate accountant insulin use: with intermediate accountant use Diabetes mellitus complication status: with other specified complication Qualified Code(s): E11.69 - Type 2 diabetes mellitus with other specified complication; Z79.4 - ad terminal makeup operator (current) use of insulin Code(s): E11.9 - Type 2 diabetes mellitus without complications Status: Chronic Assessment and Plan: Continue Accu-Cheks and sliding scale insulin -continue home dose Lantus -blood sugars in acceptable range (5) Suspected COVID-19 virus infection: Code(s): Z20.828 - Contact with and (suspected) exposure to other viral communicable diseases Status: Acute Assessment and Plan: SARS-CoV-2 PCR negative -airborne, droplet and contact precautions were discontinued -patient on room air (6) History of stroke: Code(s): Z86.73 - Personal history of transient ischemic attack (TIA), and cerebral infarction without residual deficits Status: Chronic Assessment and Plan: History of stroke -CT scan on admission showed small old infarcts in the left frontal, right bones and right cerebellar hemisphere. No acute intracranial process. Mild scattered white matter hypoattenuation consistent with chronic small vessel ischemic disease. Bilateral Otomastoid effusion, correlate clinically for Otomastoiditis. (7) Hyperlipidemia: Qualifiers: Hyperlipidemia type: unspecified Qualified Code(s): E78.5 - Hyperlipidemia, unspecified Code(s): E78.5 - Hyperlipidemia, unspecified Status: Chronic Assessment and Plan: Continue atorvastatin (8) Pneum
[2020-03-14 09:56] LABS: Alveolar/Arterial O2 Gradient 310.4 mmHg; Base Excess ABG -3.1 mEq/l (+/-2.0); Device VENTILATOR; Fractional Inspired Oxygen 100 %; HCO3 ABG 21.7 mEq/l (22.0-26.0); Modified Allen's Test Pass; Oxygen Content ABG 26.1 %vol (16.0-22.0); Oxygen Saturation ABG 99.8 % (95.0-100.0); Oxyhemoglobin 98.2 % THb (90.0-100.0); PCO2 ABG 38.7 mmHg (35.0-45.0); PO2 ABG 363.9 mmHg (80.0-100.0); PO2 FiO2 Ratio Arterial Blood 3.64 %; Site Drawn LEFT RADIAL; Total Hemoglobin 18.3 g/dL (12.0-18.0); pH ABG 7.367 (7.350-7.450)
[2020-03-14 09:57] LABS: Arterial Blood Gas PEEP 5 cmH2O; Arterial Blood Gas Tidal Volume 450 ml; Arterial Blood Gas Vent Mode CMV; Arterial Blood Gas Ventilator rate 18 /MIN
--- NOTE | 2020-03-14 10:51 | WPDINTPN ---
Progress Note: A&P Assessment and Plan (1) Acute respiratory failure: Qualifiers: Respiratory failure complication: hypoxia and hypercapnia Qualified Code(s): J96.01 - Acute respiratory failure with hypoxia; J96.02 - Acute respiratory failure with hypercapnia Code(s): J96.00 - Acute respiratory failure, unspecified whether with hypoxia or hypercapnia Status: Acute Assessment and Plan: Patient had a cardiac arrest, unable to protect his airway. The bedside RN discussed with the over the phone and she agreed for intubation. -patient was intubated on 03/14/2020 -intubation was uneventful -chest x-ray did not show any acute cardiopulmonary disease -patient sedated with fentanyl Versed infusion -patient's daughters arrived and stated that the patient did not want to be on breathing machines and have discussed with patient's and have come to a decision to withdraw care (2) Cardiac arrest: Code(s): I46.9 - Cardiac arrest, cause unspecified Status: Acute Assessment and Plan: Unknown cause of cardiac arrest could be aspiration, acute coronary event -patient did lose his pulse, ROSC after 3-4 chest compressions, did not require any medications as it the cardiac arrest was very brief -family withdrawing support (3) Hypotension: Qualifiers: Hypotension type: unspecified hypotension type Qualified Code(s): I95.9 - Hypotension, unspecified Code(s): I95.9 - Hypotension, unspecified Status: Acute Assessment and Plan: Patient presented with hypotension and the ED with systolic in the 60s to 80s, was given adequate amount of IV fluids. Central line was attempted in the right IJ and right subclavian but unable to advance the guidewire. Patient refused femoral central line -03/12/2020 blood pressures dropped to 50s and 60s systolic and was started on Gaurang-Synephrine via peripheral access -discussed with Dr. Garcia, who is his primary care doctor, he stated that patient's systolic blood pressures hands normally low in the 70s to 80s and that is where he would maintain him - on midodrine -will continue to monitor -central line in the left femoral vein was inserted, flow was very sluggish, IV fluid bolus was given. 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 Code(s): E11.9 - Type 2 diabetes mellitus without complications Status: Chronic Assessment and Plan: Continue Accu-Cheks and sliding scale insulin -continue home dose Lantus -blood sugars in acceptable range (5) Suspected COVID-19 virus infection: Code(s): Z20.828 - Contact with and (suspected) exposure to other viral communicable diseases Status: Acute Assessment and Plan: SARS-CoV-2 PCR negative -airborne, droplet and contact precautions were discontinued -patient on room air (6) History of stroke: Code(s): Z86.73 - Personal history of transient ischemic attack (TIA), and cerebral infarction without residual deficits Status: Chronic Assessment and Plan: History of stroke -CT scan on admission showed small old infarcts in the left frontal, right bones and right cerebellar hemisphere. No acute intracranial process. Mild scattered white matter hypoattenuation consistent with chronic small vessel ischemic disease. Bilateral Otomastoid effusion, correlate clinically for Otomastoiditis. (7) Hyperlipidemia: Qualifiers: Hyperlipidemia type: unspecified Qualified Code(s): E78.5 - Hyperlipidemia, unspecified Code(s): E78.5 - Hyperlipidemia, unspecified Status: Chronic Assessment and Plan: Continue atorvastatin (8) Pneum
[2020-03-14] MEDS: MORPHINE SULFATE 4 MG/ML INJ 5 MG IV PUSH (11:07)
--- NOTE | 2020-03-14 11:18 | PC.NURSE ---
03/14/20 @ 0750 Patient attempting to get out if bed. According to staff, patient started to stand then sat down at bedside. Patient became unresponsive, pulse was not palpable therfore code blue was called. CPR initiated. Two compressions were completed then patient moaned. Nurses and physician at bedside. Patient was agonal breathing. Family was called and they elected to intubate. Patient was intubated, central line was inserted, and sedation ordered. Will continue to monitor.
--- NOTE | 2020-03-14 11:39 | PCOTNOTE ---
Unable to complete OT evaluation at this time due to change in medical status. Awaiting discharge/hold therapy orders at this time.
--- NOTE | 2020-03-14 13:56 | PC.NURSE ---
03/14/20 @ 4521 Patient appears comfortable. Family at bedside. Dr. John spoke with family regarding wishes. Hospice to visit and evaluate patient.
--- NOTE | 2020-03-14 17:33 | PM.IMPN ---
Progress Note: A&P Assessment and Plan (1) Pneumonia: Qualifiers: Laterality: left Lung location: lower lobe of lung Pneumonia type: due to unspecified organism Qualified Code(s): J18.9 - Pneumonia, unspecified organism Code(s): J18.9 - Pneumonia, unspecified organism Status: Acute Assessment and Plan: 03/14/20 17:33 Chest x-ray is not well-defined for pneumonia but looks more like bronchitis. The patient was started on azithromycin and Rocephin. Will get blood cultures and sputum cultures. The patient is being checked for COVID. Patient became hypotensive and had to have several L of IV fluids during the blood pressure up. A central line was attempted x2 without success. I talked to him about a central line again and he is refusing. patient is 74-year-old male with a history of throat cancer with dementia he was brought to the emergency department by his family patient was quite confused is behaving strangely there was concern about cough and congestion, patient is hard of hearing and unable to provide much detail history review of symptom in the emergency department was found to have hypotension systolic blood pressure and 70s and 80s, attempts were made to place central line with IJ without success and patient refused femoral line. Patient is vigorously hydrated, correct in ICU, still quite confused, patient has had no contact with COVID is COVID test is negative, his x-ray shows possibly pneumonia being treated with Rocephin azithromycin, unlikely sepsis patient has a mildl leukocytosis, no fever no tachycardia or tachypnea, no lactic acid. 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 (3) Hyperlipidemia: Qualifiers: Hyperlipidemia type: unspecified Qualified Code(s): E78.5 - Hyperlipidemia, unspecified Code(s): E78.5 - Hyperlipidemia, unspecified Status: Chronic Assessment and Plan: Continue with atrial for statin. (4) Suspected COVID-19 virus infection: Code(s): Z20.828 - Contact with and (suspected) exposure to other viral communicable diseases Status: Acute Assessment and Plan: Continue with isolation. Await results. It is negative (5) History of stroke: Code(s): Z86.73 - Personal history of transient ischemic attack (TIA), and cerebral infarction without residual deficits Status: Chronic Assessment and Plan: Patient is on Plavix and aspirin. (6) Dementia: Qualifiers: Dementia behavioral disturbance: with behavioral disturbance Dementia type: vascular dementia Qualified Code(s): F01.51 - Vascular dementia with behavioral disturbance Code(s): F03.90 - Unspecified dementia without behavioral disturbance Status: Acute Assessment and Plan: Patient is aware of who he is and where he is but not always the time. Subjective Date/time seen: 03/14/20 17:33 Chest x-ray is not well-defined for pneumonia but looks more like bronchitis. The patient was started on azithromycin and Rocephin. Will get blood cultures and sputum cultures. The patient is being checked for COVID. Patient became hypotensive and had to have several L of
--- NOTE | 2020-03-14 18:34 | PC.NURSE ---
This patient, Saul Luna, was transferred to [[id number]] on 03/14/20 at 1835. Personal belongings sent home with family. Report given to [ Porsche ANAYA]. Appropriate documentation sent with patient.
--- NOTE | 2020-03-14 18:47 | ADMGEN ---
This patient, Saul Luna, was admitted to [facility] [place] [facility] @ 1845 on 03-14-2020. Patient/family oriented to hospital policies and general routines including ID bracelet, bed and alarms, visiting hours, pain management, procedures, bathroom and other care routines, personal items, smoking policy, room service/diet, and visiting hours. Valuables list has been completed. Information on how to activate the Rapid Response Team has been discussed. Patient/Family are encouraged to report perceived risks to care and to ask questions if they do not understand what they are told or what they should do.
--- NOTE | 2020-03-17 14:32 | PM.DDS ---
Discharge Sum: Prov Provider Primary care physician: Alex Garcia MD Admitting provider: Santiago Szymanski MD Consults: 03/11/20 14:12 Consult to Physician Routine Comment: Consulting Provider: Khang Main Reason for consultation: icu Has provider been notified: Yes 03/14/20 Care Coordination Consult Routine Comment: Reason for Consult:: Hospice Referral Discharge Sum: Summary Date and Time Date of admission: 03/11/20 14:59 Date of : 03/15/20 Time of : 01:15 Summary Details: Chest x-ray is not well-defined for pneumonia but looks more like bronchitis. The patient was started on azithromycin and Rocephin. Will get blood cultures and sputum cultures. The patient is being checked for COVID. Patient became hypotensive and had to have several L of IV fluids during the blood pressure up. A central line was attempted x2 without success. I talked to him about a central line again and he is refusing. patient is 74-year-old male with a history of throat cancer with dementia he was brought to the emergency department by his family patient was quite confused is behaving strangely there was concern about cough and congestion, patient is hard of hearing and unable to provide much detail history review of symptom in the emergency department was found to have hypotension systolic blood pressure and 70s and 80s, attempts were made to place central line with IJ without success and patient refused femoral line. Patient is vigorously hydrated, correct in ICU, still quite confused, patient has had no contact with COVID is COVID test is negative, his x-ray shows possibly pneumonia being treated with Rocephin azithromycin, unlikely sepsis patient has a mildl leukocytosis, no fever no tachycardia or tachypnea, no lactic acid. Intesivist spoke with patient's primary care and patient has history of low BP in 60s and 70s systolic, patient treated with Gaurang-Synephrine and middorin, today patient had a cardiac arrest was intubated later his daughter withdrawal support and patient was extubated, currently patient is sedated patient family present in the room and considering hospice care, Patient on 03/15/2020 at 01:15 Additional Data Confirmation of as documented by pronouncing clinician: no pulse, no respirations, no heart sounds and pupils fixed and dilated Family: at bedside Attending/PCP notified?: Yes Attending physician: Santiago Szymanski MD Was code activated?: No Autopsy requested?: No grey goods examiner notified?: Yes Organ bank notified?: No Advance directives: Yes Hospice patient?: Yes
== END 2020-03-15 01:15 | disposition expired | DRG 208 ==
LOC: ANHED 12:38 → ANHICU 17:32 → ANH3MEDSUR 03-17 17:05 → ANHICU 03-17 17:05
PROVIDERS: Emergency Medicine Emergency Medical Services; Internal Medicine; Admitting Provider Internal Medicine; Emergency Provider Emergency Medicine; PCP Family Medicine; Visit Provider Family Medicine
DX: J18.9 Pneumonia, unspecified organism (principal); J96.01 Acute respiratory failure with hypoxia; J96.02 Acute respiratory failure with hypercapnia; F01.51 Vascular dementia, unspecified severity, with behavioral disturbance; Z20.828 Contact with and (suspected) exposure to other viral communicable diseases; E11.9 Type 2 diabetes mellitus without complications; E78.5 Hyperlipidemia, unspecified; Z86.73 Personal history of transient ischemic attack (TIA), and cerebral infarction without residual deficits; I46.9 Cardiac arrest, cause unspecified; Z79.4 Long term (current) use of insulin; I50.9 Heart failure, unspecified; Z66 Do not resuscitate; I95.9 Hypotension, unspecified
CPT/HCPCS: 31500; 36415; 36556; 36600; 51701; 70450; 71045; 74018; 80048; 80053; 80202; 81001; 82010; 82375; 82550; 82805; 83050; 83605; 83735; 83880; 84100; 84484; 85025; 85027; 85610; 85730; 86140; 87040; 87070; 87205; 87635; 92610; 93005; 94002; 96361; 96365; 96367; 99285; A9270; C1751; C8929; C9803; J0456; J0696; J1650; J1815; J2060; J2250; J2270; J2370; J3010; J3370; J7030; J7060; J7120; Q9957; U0003